=== PATIENT | male | born 1970 | race Caucasian/White ===

== ENCOUNTER 2020-07-10 11:24 | Emergency (ER) | payer BC ==
[~2020-07-10 11:24] MED LIST: Sodium Chloride 0.9% 10 ML Syringe FLUSH PRN
[2020-07-10] MEDS ORDERED: Sodium Chloride 0.9% 1,000 ML IV ONE (11:25)
[2020-07-10] MEDS ORDERED: HYDROmorphone 0.5 MG/0.5 ML Syringe IV ONE (11:32)
[2020-07-10] MEDS ORDERED: Midazolam 1 MG/ML 2 ML SDV IVPUSH ONE (11:32)
[2020-07-10] MEDS ORDERED: Lactated Ringers 1,000 ML IV ONE (11:32)
[2020-07-10] MEDS ORDERED: HYDROmorphone 0.5 MG/0.5 ML Syringe ONE (11:41)
[2020-07-10] MEDS ORDERED: Midazolam 1 MG/ML 2 ML SDV ONE (11:41)
[2020-07-10 11:55] LABS: PTT,PARTIAL THROMBOPLSTIN TIME 25.1 SEC (25.6-32.8)
[2020-07-10 11:58] LABS: ANION GAP 13.9 mmol/L (10-20); CHLORIDE,CL 103 mmol/L (98-107); SODIUM,NA 141 mmol/L (136-145)
--- NOTE | 2020-07-10 12:03 | EDM.PDOC ---
ED HPI GENERAL MEDICAL PROBLEM - General Stated Complaint: TRAUMA Time Seen by Provider: 07/10/20 11:24 Source of Information: Reports: Patient History Limitations: Reports: No Limitations - History of Present Illness INITIAL COMMENTS - FREE TEXT/NARRATIVE: Patient comes emergency department today by ambulance with concerns injury to his right femur. Trauma code was activated prior to the patient's arrival due to the mechanism of injury by the ambulance and the trauma team was available on the patient's arrival. The patient just prior to arrival was out cutting a tree with a chainsaw. When he was on the backside of the tree finishing the cot as the tree fell instead of falling forward and kicked backwards towards him. It struck him directly in the mid right femur region. He was not struck anywhere else. He immediately called 911. Upon EMS arrival the patient was alert and appropriate. He had noted deformity to the right mid femur. He was given a milligram of Dilaudid by ambulance and was placed in a hare traction. Upon arrival the patient only complains of right femur pain. He denies any other injury other than to his right femur. No head neck or back pain. No loss of conscious. No chest pain or shortness of breath or difficulty breathing. No abdominal pain no nausea or vomiting. No weakness dizziness lightheadedness. He denies any paresthesias of his upper or lower extremities. And he only complains of change in the function of his right lower extremity due to the hare traction splint that is currently in place on his right leg. No COVID exposure no COVID symptoms. The patient was never tachycardic or overtly hypotensive per EMS. His blood pressure has been about 110 systolically throughout the transport and initially. - Related Data Allergies Allergy/AdvReac Type Severity Reaction Status Date / Time No Known Allergies Allergy Verified 07/10/20 12:32 Home Meds: Home Meds . [No Known Home Meds] 07/10/20 [History] Review of Systems - Review of Systems Review Of Systems: Comprehensive ROS is negative, except as noted in HPI. ED EXAM, GENERAL - Physical Exam Exam: See Below Exam Limited By: No Limitations General Appearance: Alert, WD/WN, No Apparent Distress Eye Exam: Bilateral Eye: EOMI, PERRL Ears: Normal External Exam. No: Normal Canal (Bilateral canals occluded with cerumen. ) Nose: Normal Inspection, Normal Mucosa Throat/Mouth: Normal Inspection, Normal Lips, Normal Oropharynx, Normal Voice, No Airway Compromise Head: Atraumatic, Normocephalic Neck: Normal Inspection, Supple, Non-Tender Respiratory/Chest: No Respiratory Distress, Lungs Clear, Normal Breath Sounds, No Accessory Muscle Use, Chest Non-Tender Cardiovascular: Normal Peripheral Pulses, Regular Rate, Rhythm Peripheral Pulses: 2+: Radial (L), Radial (R), Femoral (L), Femoral (R), Popliteal (L), Popliteal (R), Posterior Tibial (L), Posterior Tibial (R), Dorsalis Pedis (L), Dorsalis Pedis (R) GI/Abdominal: Normal Bowel Sounds, Soft, Non-Tender, No Organomegaly, Pelvis Stable (Male) Exam: Deferred Rectal (Males) Exam: Deferred Back Exam: Normal Inspection. No: Paraspinal Tenderness, Vertebral Tenderness Extremities: Normal Capillary Refill. No: Normal Inspection (Upper extremities and left lower extremities are unremarkable with normal inspection. The right leg is in a hare traction splint. He has tenderness to the right mid femur region. There is no large hematoma or swelling. There is good alignment of the right femur. Pelvis is stable. CMS intact appropriately to all 4 extremities.) Neurological: Alert, Oriented, CN II-XII Intact, Normal Cognition, No Motor/Sensory Deficits Psychiatric: Normal Affect, Normal Mood Skin Exam: Warm, Dry, Intact, Normal Color, No Rash Lymphatic: No Adenopathy Course - Orders/Labs/Meds Orders: Active Orders 24 hr Category Date Time Status Peripheral IV Insertion Adult [OM.PC] Stat Oth 07/10/20 11:16 Ordered Labs: Laboratory Tests 07/10/20 07/10/20 07/10/20 Range/Units 11:29 11:29 11:29 WBC 6.8 (4.0-10.0) x10^3/uL RBC 4.51 (4.5-6.0) x10^6/uL Hgb 13.8 L (14.0-18.0) g/dL Hct 39.1 L (40.0-52.0) % MCV 86.7 (78.0-93.0) fL MCH 30.6 (26.0-32.0) pg MCHC 35.3 (32.0-36.0) g/dL RDW Coeff of Idris 12.7 (10.0-15.0) % Plt Count 178 (130-400) x10^3/uL Neut % (Auto) 56.5 (50.0-80.0) % Lymph % (Auto) 34.9 (25.0-50.0) % Stephenson % (Auto) 6.3 (2.0-11.0) % Eos % (Auto) 1.9 (0.0-4.0) % Baso % (Auto) 0.4 (0.2-1.2) % PT 10.4 (9.5-12.3) SEC INR 1.0 L (2.0-3.5) APTT 25.1 L (25.6-32.8) SEC Sodium 141 (136-145) mmol/L Potassium 3.9 (3.5-5.1) mmol/L Chloride 103 (98-107) mmol/L Carbon Dioxide 28 (21-32) mmol/L Anion Gap 13.9 (10-20) mmol/L BUN 12 (7-18) mg/dL Creatinine 1.0 (0.70-1.30) mg/dL Est Cr Clr Drug Dosing TNP Estimated GFR (MDRD) > 60 Glucose 141 H (74-106) mg/dL Lactic Acid (0.4-2.0) mmol/L Calcium 9.1 (8.5-10.1) mg/dL Corrected Calcium 9.26 (8.5-10.1) mg/dL Total Bilirubin 0.7 (0.2-1.0) mg/dL AST 22 (15-37) U/L ALT 20 (16-63) U/L Alkaline Phosphatase 61 (46-116) U/L C-Reactive Protein < 0.2 (<=0.9) mg/dL Total Protein 6.8 (6.4-8.2) g/dL Albumin 3.8 (3.4-5.0) g/dL Globulin 3.0 Albumin/Globulin Ratio 1.27 Ethyl Alcohol < 3 (0-3) mg/dL Blood Type Gel Antibody Screen 07/10/20 07/10/20 Range/Units 11:29 11:29 WBC (4.0-10.0) x10^3/uL RBC (4.5-6.0) x10^6/uL Hgb (14.0-18.0) g/dL Hct (40.0-52.0) % MCV (78.0-93.0) fL MCH (26.0-32.0) pg MCHC (32.0-36.0) g/dL RDW Coeff of Idris (10.0-15.0) % Plt Count (130-400) x10^3/uL Neut % (Auto) (50.0-80.0) % Lymph % (Auto) (25.0-50.0) % Stephenson % (Auto) (2.0-11.0) % Eos % (Auto) (0.0-4.0) % Baso % (Auto) (0.2-1.2) % PT (9.5-12.3) SEC INR (2.0-3.5) APTT (25.6-32.8) SEC Sodium (136-145) mmol/L Potassium (3.5-5.1) mmol/L Chloride (98-107) mmol/L Carbon Dioxide (21-32) mmol/L Anion Gap (10-20) mmol/L BUN (7-18) mg/dL Creatinine (0.70-1.30) mg/dL Est Cr Clr Drug Dosing Estimated GFR (MDRD) Glucose (74-106) mg/dL Lactic Acid 1.4 (0.4-2.0) mmol/L Calcium (8.5-10.1) mg/dL Corrected Calcium (8.5-10.1) mg/dL Total Bilirubin (0.2-1.0) mg/dL AST (15-37) U/L ALT (16-63) U/L Alkaline Phosphatase (46-116) U/L C-Reactive Protein (<=0.9) mg/dL Total Protein (6.4-8.2) g/dL Albumin (3.4-5.0) g/dL Globulin Albumin/Globulin Ratio Ethyl Alcohol (0-3) mg/dL Blood Type O POSITIVE Gel Antibody Screen Negative Meds: Medications Discontinued Medications Generic Name Dose Route Start Last Admin Trade Name Freq PRN Reason Stop Dose Admin Hydromorphone HCl 0.5 mg 07/10/20 11:32 Dilaudid IV 07/10/20 11:33 ONETIME ONE Hydromorphone HCl Confirm 07/10/20 11:41 Dilaudid Administered 07/10/20 11:42 Dose 0.5 mg .ROUTE .STK-MED ONE Lactated Ringer's 1,000 mls @ 999 mls/hr 07/10/20 11:32 Ringers, Lactated IV 07/10/20 12:32 ONETIME ONE Midazolam HCl 2 mg 07/10/20 11:32 Versed 1 Mg/Ml IVPUSH 07/10/20 11:33 ONETIME ONE Midazolam HCl Confirm 07/10/20 11:41 Versed 1 Mg/Ml Administered 07/10/20 11:42 Dose 2 mg .ROUTE .STK-MED ONE Sodium Chloride 10 ml 07/10/20 11:17 Saline Flush FLUSH ASDIRECTED PRN Keep Vein Open - Re-Assessments/Exams Free Text/Narrative Re-Assessment/Exam: 07/10/20 20:21 Trauma Team was activated prior to the patient's arrival and was available upon the patient's arrival. Dilaudid 0.5mg IVP Versed 1 mg IVP 07/10/20 20:46 Xray pelvis no overt fracture. Right femur with mid diaphyseal right femoral fracture. I called and spoke with DR. Mahmood at [facility] ER COURSE findings and concerns were relayed to him verbally over the phone. HE accepted the patient in transfer at this time to the ED for assessment of his traumatic femur fracture. I discussed the plan of care with the patient. He is understanding and comfortable with this plan and her questions answered. Departure - Departure Time of Disposition: 11:50 Disposition: DC/Tfer to [facility] 02 Clinical Impression: Femur fracture, right Qualifiers: Encounter type: initial encounter Femur location: shaft Fracture type: closed Fracture morphology: unspecified fracture morphology Qualified Code(s): S72.301A - Unspecified fracture of shaft of right femur, initial encounter for closed fracture - Discharge Information Referrals: PCP,None [Primary Care Provider] - Forms: Interfacility Transfer EMTALA - My Orders Last 24 Hours: My Active Orders 07/10/20 11:16 Peripheral IV Insertion Adult [OM.PC] Stat - Assessment/Plan Last 24 Hours: My Active Orders 07/10/20 11:16 Peripheral IV Insertion Adult [OM.PC] Stat Assessment:: Trauma Code RIght mid shaft femur fracture. Plan: Transfer by ground ambulance to [facility] to the ED to See Dr. Mahmood for further care management.
--- NOTE | 2020-07-10 12:12 | CR ---
[id number] RAD/RAD Pelvis 1-2V Exam: RAD Pelvis 1-2V Clinical Data: TRAUMA COMPARISON: NO PREVIOUS SIMILAR EXAM IS AVAILABLE FINDINGS: Patient is rotated to the right No obvious fracture or dislocation is seen CT would be helpful IMPRESSION: NO OBVIOUS FRACTURE OR DISLOCATION LIMITED ROTATED STUDY Anthony Pierce MD 07/10/20 [id number] Thank you for allowing us to participate in the care of your patient.
--- NOTE | 2020-07-10 12:13 | CR ---
[id number] RAD/RAD Femur Right 2V EXAM: RAD Femur Right 2V CLINICAL DATA: TRAUMA COMPARISON: NO PREVIOUS SIMILAR EXAM IS AVAILABLE. FINDINGS: A mid diaphyseal right femoral fracture is seen There is slight medial displacement of the distal fracture fragment The exam was limited to the AP projection only. IMPRESSION: MID DIAPHYSEAL RIGHT FEMORAL FRACTURE Anthony Pierce MD 07/10/20 [id number] Thank you for allowing us to participate in the care of your patient.
== END 2020-07-10 12:20 | disposition short-term general hospital (02) ==
LOC: VM.ED 11:24
DX: S72.301A Unspecified fracture of shaft of right femur, initial encounter for closed fracture (principal); W22.8XXA Striking against or struck by other objects, initial encounter
CPT/HCPCS: 72170; 80053; 80307; 83605; 85025; 85610; 85730; 86140; 86850; 86900; 86901; 96361; 96374; 96375; 99283; 99285-25; J1170; J2250; J7030